=== PATIENT | female | born 1995 | race Caucasian/White ===

== ENCOUNTER 2017-11-22 17:54 | Emergency (ER) | payer MEDICAID, OTHER ==
[2017-11-22 20:01] VITALS: BMI 35.9
[2017-11-22] MEDS: Lactated Ringer's 1,000 ML IV SCH ×2 (20:15→21:15)
[2017-11-22 20:29] LABS: SQUAMOUS EPITHIAL 9 /hpf (0-5); URINE BACTERIA RARE (<OCC); URINE BILIRUBIN NEGATIVE (NEGATIVE); URINE BLOOD NEGATIVE (NEGATIVE); URINE CLARITY CLOUDY (Clear); URINE COLOR YELLOW (YELLOW); URINE GLUCOSE (UA) NEG (Normal); URINE LEUKOCYTE ESTERASE TRACE Leu/uL (Negative); URINE NITRATE NEGATIVE (NEGATIVE); URINE PROTEIN NEGATIVE (NEGATIVE)
[2017-11-23 01:55] VITALS: BP 112/65; PULSE 174; RESP 18; TEMP 97.9
--- NOTE | 2017-11-23 05:45 | OBHP ---
Datetime: 11/22/2017 21:30 IP Adm Impression: , intrauterine IP Admit Plan: Observation/Evaluation; Discharge home Admit Comment, IP Provider: Patient reports feeling better, no complaints at this time. UA results: moderated microscopic WBC Plan: Discharge home Keflex bid x 5 days. Follow up apt with primary OB next Saturday ER precaution given. Case discussed with Dr Mariano Welsh PGY 1. Pt seen and evaluated with the resident and i agree with the above. Pelvic Type - PN: Adequate Extremities - PN: Normal Abdomen - PN: Normal Back - PN: Normal Breast - PN: Normal Lungs - PN: Normal Heart - PN: Normal Thyroid - PN: Normal Neurologic - PN: Normal HEENT - PN: Normal General - PN: Normal FHR - Baseline A Provider: 140 Membranes, Provider: Intact EGA AdmitDate IP: 36.3 Vital Signs Provider: Reviewed IP Chief Complaint: Maternal discomfort NICHD Variability Prov Fetus A: Moderate 6-25bpm NICHD Accel Fetus A IP Provider: [id number] FHR Category Provider Fetus A: Category I NICHD Decel Fetus A IP Provider: None Dilatation, Provider: FT Effacement, Provider: thick Station, Provider: -3 Genitourinary Exam: Normal DTRs - PN: Normal
== END 2017-11-22 21:35 | disposition home or self-care (01) ==
LOC: H.EROB2 17:54
DX: O23.43 Unspecified infection of urinary tract in pregnancy, third trimester (principal); Z3A.36 36 weeks gestation of pregnancy
CPT/HCPCS: 81003; 96360; 99283; J7120

== ENCOUNTER 2017-12-12 18:55 | Emergency (ER) | payer OTHER ==
[2017-12-12 20:45] VITALS: BMI 40.1
[2017-12-12] MEDS ORDERED: Lactated Ringer's 1,000 ML IV SCH (20:45)
[2017-12-13 03:22] VITALS: BP 119/76; PULSE 87
--- NOTE | 2017-12-13 08:42 | OBHP ---
Datetime: 12/12/2017 21:00 IP Adm Impression: Term, intrauterine IP Admit Plan: Discharge home Admit Comment, IP Provider: 22 yo at 39w3d presented to [facility] with abdominal pain since 11 pm last night; pain comes and goes, rated 8/10. Reports good movement, denies vaginal bleeding, d enies contractions, denies loss of fluid. care: [facility] Past Obhx: ; NVD at 38w (2009), 32w (2011), 36w (2013), 38w (2015). 2 elective TOP. Past med hx: HSV1 Past surg hx: cholecystectomy Fam hx: DM2, HTN in mother Social hx: denies tobacco, alcohol, drug use ROS: denies dizziness, vision changes, chest pain, shortness of breath, n/v/d/c, burning with urin ation SVE: 1cm, 0% effaced, -3 A: 22 yo at 39.3 P: CBC, Type and screen, 1L LR; reassess 2300 SVE after 1L LR: unchanged Pt stable for discharge, to follow up with provider Pt seen/discussed with Dr. Alanis. Addendum: Patient for multiple hours at OB ED. heart tracing reassuring and no evidence of active labo r at this time. Anticipate discharge patient home with labor precautions. I discussed plan with americo bergman and all patient questions answered. Maternal well-being and well-being reassuring at this ti me. Extremities - PN: Normal Abdomen - PN: Normal Back - PN: Normal Breast - PN: Not Done Lungs - PN: Normal Heart - PN: Normal Thyroid - PN: Normal Neurologic - PN: Normal HEENT - PN: Normal General - PN: Normal FHR - Baseline A Provider: 120 Comments, ACOG Physical Exam: SVE 1cm, 0% effaced, -3 No herpetic lesions/vesicles noted around introitus. SVE 22:30 1cm , 0% effaced, -3 EGA AdmitDate IP: 39.3 IP Chief Complaint: Maternal discomfort NICHD Variability Prov Fetus A: Moderate 6-25bpm NICHD Accel Fetus A IP Provider: 15X15 FHR Category Provider Fetus A: Category I NICHD Decel Fetus A IP Provider: None Dilatation, Provider: 1 Effacement, Provider: 30 Station, Provider: -3 Genitourinary Exam: Normal DTRs - PN: Not Done
== END 2017-12-12 23:00 | disposition home or self-care (01) ==
LOC: H.EROB2 18:55
DX: O26.893 Other specified pregnancy related conditions, third trimester (principal); Z3A.39 39 weeks gestation of pregnancy; R10.9 Unspecified abdominal pain
CPT/HCPCS: 96360; 99283; J7120